=== PATIENT | male | born 2000 | race Caucasian/White ===

== ENCOUNTER 2020-04-08 12:06 | Emergency (ER) | payer MEDICAID ==
[~2020-04-08] VITALS: Ht 180.3 cm; Wt 63.6 kg
[2020-04-08 12:16] VITALS: BP 122/64
[2020-04-08] MEDS ORDERED: HYDROcodone/acetaminophen 5mg/325mg tablet PO ONE (13:10)
[2020-04-08 13:25] LABS: CLARITY,URINE CLOUDY (Clear); COLOR,URINE YELLOW (Yellow); GLUCOSE, URINE NEGATIVE (Neg); KETONES,URINE NEGATIVE (Neg); LEUKOCYTE ESTERASE ,URINE NEGATIVE (Neg); NITRITES, URINE NEGATIVE (Neg); OCCULT BLOOD,URINE NEGATIVE (Neg); PH,URINE 7.5 (4.8-8.0); PROTEIN,URINE NEGATIVE (Neg); UROBILINOGEN,URINE 0.2 E.U/dL (0.2-1.0)
[2020-04-08 13:26] LABS: UA COLLECTION TYPE VOIDED
[2020-04-08 13:35] LABS: SQUAMOUS EPITHELIAL CELL,UR FEW /LPF (FEW)
[2020-04-08 13:36] LABS: AMORPHOUS PHOSPHATES 4+; BACTERIA,URINE FEW /HPF (Neg); RBC,URINE 0-2 /HPF (0-2); WBC,URINE 0-4 /HPF (0-4)
== END 2020-04-08 13:59 | disposition home or self-care (01) ==
LOC: ER 12:07
DX: N50.811 Right testicular pain (principal); R10.31 Right lower quadrant pain
CPT/HCPCS: 76870; 81001; 99284

== ENCOUNTER 2020-06-06 11:25 | Emergency (ER) | payer MEDICAID ==
[~2020-06-06] VITALS: Ht 180.3 cm; Wt 62.0 kg
[2020-06-06 11:34] VITALS: BP 129/75
[2020-06-06] MEDS ORDERED: AMOX-117 PO (12:22)
== END 2020-06-06 12:35 | disposition home or self-care (01) ==
LOC: ER 11:26
DX: K11.8 Other diseases of salivary glands (principal); Z79.2 Long term (current) use of antibiotics
CPT/HCPCS: 99283

== ENCOUNTER 2020-07-03 09:31 | Emergency (ER) | payer MEDICAID ==
[~2020-07-03] VITALS: Ht 180.3 cm; Wt 64.0 kg
[2020-07-03 09:38] VITALS: BP 103/60
--- NOTE | 2020-07-03 10:07 | NUR ---
Labs to be cancelled per MD Dubois
== END 2020-07-03 10:19 | disposition home or self-care (01) ==
LOC: ER 09:31
DX: R10.31 Right lower quadrant pain (principal)
CPT/HCPCS: 99281

== ENCOUNTER 2022-02-21 14:13 | Emergency (ER) | payer MEDICAID ==
[~2022-02-21] VITALS: Ht 180.3 cm; Wt 65.9 kg
[2022-02-21 14:26] VITALS: BP 139/75
[2022-02-21] MEDS ORDERED: acetaminophen 325mg tablet PO ONE (16:25)
[2022-02-21] MEDS ORDERED: ketorolac trometh inj. 60 MG/2 ML VIAL IM ONE (16:25)
== END 2022-02-21 18:08 | disposition home or self-care (01) ==
LOC: ER 14:13
DX: M25.562 Pain in left knee (principal); V00.131A Fall from skateboard, initial encounter; Y93.51 Activity, roller skating (inline) and skateboarding; Y92.89 Other specified places as the place of occurrence of the external cause; Y99.9 Unspecified external cause status
CPT/HCPCS: 29505; 29530; 73564; 99283; A6449